=== PATIENT | female | born 1955 | race Caucasian/White ===

== ENCOUNTER → 2016-08-12 | Outpatient (CLI) | payer OTHER ==
[~2016-08-12] MED LIST: ACET-1138 PO; ASPEC81 PO; BUPRTAB51 PO; CALC0.2510 PO; FRS/40 PO; LANS30CA12 PO; LEVO75TA36 PO; OXYSR10 PO; POTA1TAB97 PO; RXC5 PO; SIMV40TA2 PO; TRAZ100T29 PO; ZNTT/150 PO
[2016-08-12 12:50] LABS: HEMATOCRIT 41.1 % (37-47); MEAN CELL VOLUME 89.2 fL (80-100); MEAN CORPUSCULAR HEMOGLOBIN 29.5 pg (25-34); MEAN CORPUSCULAR HGB CONC 33.1 g/dl (32-36); PLATELET COUNT 218 K/uL (130-400); RED BLOOD COUNT 4.61 M/uL (4.2-5.4); WHITE BLOOD COUNT 4.97 K/uL (4.8-10.8)
[2016-08-12 13:05] LABS: URINE PROTIEN/CREAT RATIO 0.1 (0-0.2); URINE TOTAL PROTEIN 17.9 mg/dl (0-11.9)
[2016-08-12 13:06] LABS: URINE APPEARANCE CLOUDY (CLEAR); URINE BILIRUBIN NEG (NEG); URINE COLOR YELLOW; URINE EPITHELIAL CELL AUTO >30 /lpf (0-5); URINE NITRITE NEG (NEG); URINE PH 5.5 (4.5-7.5); URINE SPECIFIC GRAVITY 1.014 (1.000-1.030); UROBILINOGEN NEG (NEG)
[2016-08-12 13:16] LABS: ALT/SGPT 12 U/L (12-78); BLOOD UREA NITROGEN 13 mg/dl (7-18); BUN/CREATININE RATIO 8.2 (10-20); CALCIUM 9.4 mg/dl (8.5-10.1); CARBON DIOXIDE 30 mmol/L (21-32); CHLORIDE 103 mmol/L (98-107); GLUCOSE 101 mg/dl (70-99); PHOSPHORUS 3.4 mg/dl (2.5-4.9); POTASSIUM 3.5 mmol/L (3.5-5.1); SODIUM 141 mmol/L (136-145); TRIGLYCERIDES 121 mg/dl (0-150); VERY LOW DENSITY LIPOPROT CALC 24 mg/dl
[2016-08-12 13:19] LABS: MANUAL MICROSCOPIC REQUIRED? NO; REVIEW REQ? YES
[2016-08-12 13:26] LABS: CHOLESTEROL 133 mg/dl (0-200); CHOLESTEROL/HDL RATIO 2.4; HDL CHOLESTEROL 55 mg/dl; LDL CHOLESTEROL CALCULATED 54 mg/dl; THYROID STIMULATING HORMONE 0.912 uIu/ml (0.300-4.500)
== END | disposition home or self-care (01) ==
LOC: C.LABPBG 08:20
PROVIDERS: ATTEND Internal Medicine Nephrology
DX: E78.5 Hyperlipidemia, unspecified (principal); E03.9 Hypothyroidism, unspecified; I12.9 Hypertensive chronic kidney disease with stage 1 through stage 4 chronic kidney disease, or unspecified chronic kidney disease; M25.561 Pain in right knee; N18.3 Chronic kidney disease, stage 3 (moderate); E55.9 Vitamin D deficiency, unspecified; N25.81 Secondary hyperparathyroidism of renal origin

== ENCOUNTER → 2016-10-19 | Outpatient (CLI) | payer OTHER ==
--- NOTE | 2016-10-19 14:27 | MAMMOGRAPHY REPORT ---
BILATERAL DIGITAL DIAGNOSTIC MAMMOGRAM TOMOSYNTHESIS WITH CAD: 10/19/2016 CLINICAL HISTORY: 61-year-old woman presents for bilateral screening mammography as well as follow-u p of probably benign grouped round microcalcifications in the left upper outer quadrant. TECHNIQUE: Bilateral CC and MLO 2-D digital and tomosynthesis images, spot magnification left CC and ML views were obtained. Current study was also evaluated with a Computer Aided Detection (CAD) sys tem. COMPARISON: Comparison is made to exams dated: 04/20/2016 mammogram, 10/16/2015 mammogram, and 016 mammogram - [facility]. BREAST COMPOSITION: The tissue of both breasts is heterogeneously dense, which may obscure small ma sses. FINDINGS: There are scattered benign-appearing calcifications in the breasts. There is a discrete g rouping of 4 round monomorphic microcalcifications in the upper outer middle one third of the left b reast, that are stable based on spot magnification views dating back to 10/16/2015, and based on sta ndard views dating back to 10/23/2014. These most likely represent benign fibrocystic changes as ot her round microcalcifications are scattered throughout each breast. However, longer stability is ne eded and repeat attention with spot magnification views in 12 months is recommended. Overall there is decreasing/fluctuating nodularity in the breasts, most likely represent fluctuating cysts. There is a stable intramammary lymph node in the upper outer posterior right breast. No new suspicious s piculated or irregular mass, architectural distortion or cluster of new, suspicious microcalcificati ons is seen. IMPRESSION: ACR-BI-RADS CATEGORY 3: PROBABLY BENIGN Stable round monomorphic microcalcifications in the left upper outer quadrant, and no mammographic e vidence of malignancy bilaterally. Another 12 month follow-up bilateral diagnostic mammogram includ ing left spot magnification views is recommended to ensure longer stability. These results and recommendations were discussed with the patient at the time of the exam. Approximately 10% of breast cancers are not detected with mammography. A negative mammographic repor t should not delay biopsy if a clinically suggestive mass is present. Elaine Rocha M.D. ay/:10/19/2016 11:54:50 Embedded Software Engineer: Anjana BRICENO(Funmi)(M), [facility] letter sent: Follow Up Recommended 3 BI-RADS Code: ACR-BI-RADS Category 3: Probably Benign
== END | disposition home or self-care (01) ==
LOC: C.MAMM 09:47
PROVIDERS: ATTEND Family Medicine
DX: R92.0 Mammographic microcalcification found on diagnostic imaging of breast (principal)

== ENCOUNTER → 2017-02-09 | Outpatient (CLI) | payer BC, OTHER ==
[2017-02-09 12:07] LABS: HEMATOCRIT 45.5 % (37-47); MEAN CORPUSCULAR HEMOGLOBIN 30.2 pg (25-34); MEAN CORPUSCULAR HGB CONC 33.2 g/dl (32-36); PLATELET COUNT 144 K/uL (130-400); WHITE BLOOD COUNT 4.24 K/uL (4.8-10.8)
[2017-02-09 12:27] LABS: ALT/SGPT 16 U/L (12-78); BLOOD UREA NITROGEN 10 mg/dl (7-18); BUN/CREATININE RATIO 6.4 (10-20); CALCIUM 9.3 mg/dl (8.5-10.1); CARBON DIOXIDE 33 mmol/L (21-32); CHLORIDE 106 mmol/L (98-107); CHOLESTEROL 148 mg/dl (0-200); GLUCOSE 96 mg/dl (70-99); POTASSIUM 4.2 mmol/L (3.5-5.1); SODIUM 141 mmol/L (136-145); TRIGLYCERIDES 123 mg/dl (0-150); VERY LOW DENSITY LIPOPROT CALC 25 mg/dl
[2017-02-09 12:28] LABS: URINE TOTAL PROTEIN < 5.0 mg/dl (0-11.9)
[2017-02-09 12:37] LABS: CHOLESTEROL/HDL RATIO 2.6; HDL CHOLESTEROL 57 mg/dl; LDL CHOLESTEROL CALCULATED 66 mg/dl; PHOSPHORUS 2.9 mg/dl (2.5-4.9)
[2017-02-09 13:01] LABS: URINE APPEARANCE CLEAR (CLEAR); URINE BILIRUBIN NEG (NEG); URINE COLOR YELLOW; URINE NITRITE POS (NEG); URINE SPECIFIC GRAVITY 1.013 (1.000-1.030); UROBILINOGEN NEG (NEG)
[2017-02-09 13:07] LABS: MANUAL MICROSCOPIC REQUIRED? NO; REVIEW REQ? NO
== END | disposition home or self-care (01) ==
LOC: C.LABPBG 08:48
PROVIDERS: ATTEND Internal Medicine Nephrology
DX: E78.5 Hyperlipidemia, unspecified (principal); E03.9 Hypothyroidism, unspecified; I12.9 Hypertensive chronic kidney disease with stage 1 through stage 4 chronic kidney disease, or unspecified chronic kidney disease; N18.3 Chronic kidney disease, stage 3 (moderate); N25.81 Secondary hyperparathyroidism of renal origin; E55.9 Vitamin D deficiency, unspecified

== ENCOUNTER → 2017-03-11 | Outpatient (CLI) | payer BC | END | disposition home or self-care (01) | LOC: C.MAMM 15:20 | PROVIDERS: ATTEND Family Medicine | DX: E28.39 Other primary ovarian failure (principal); M85.851 Other specified disorders of bone density and structure, right thigh; M85.852 Other specified disorders of bone density and structure, left thigh; M85.839 Other specified disorders of bone density and structure, unspecified forearm ==

== ENCOUNTER → 2017-08-23 | Outpatient (CLI) | payer BC ==
[2017-08-23 12:33] LABS: HEMATOCRIT 45.7 % (37-47); HEMOGLOBIN 15.3 g/dL (12.0-16.0); MEAN CELL VOLUME 91.6 fL (80-100); MEAN CORPUSCULAR HEMOGLOBIN 30.7 pg (25-34); MEAN CORPUSCULAR HGB CONC 33.5 g/dl (32-36); MEAN PLATELET VOLUME 11.7 fL (7.4-10.4); PLATELET COUNT 149 K/uL (130-400); RED CELL DISTRIBUTION WIDTH CV 12.8 % (11.5-14.5); RED CELL DISTRIBUTION WIDTH SD 42.8 fL (36.4-46.3); WHITE BLOOD COUNT 4.57 K/uL (4.8-10.8)
[2017-08-23 13:58] LABS: ALBUMIN 3.4 gm/dl (3.4-5.0); ALT/SGPT 14 U/L (12-78); BLOOD UREA NITROGEN 12 mg/dl (7-18); CARBON DIOXIDE 30 mmol/L (21-32); GLUCOSE 102 mg/dl (70-99); POTASSIUM 3.6 mmol/L (3.5-5.1); SODIUM 138 mmol/L (136-145)
[2017-08-23 14:09] LABS: CHOLESTEROL 159 mg/dl (0-200); LDL CHOLESTEROL CALCULATED 79 mg/dl; PHOSPHORUS 3.4 mg/dl (2.5-4.9)
== END | disposition home or self-care (01) ==
LOC: C.LABPBG 07:40
PROVIDERS: ATTEND Family Medicine
DX: E78.5 Hyperlipidemia, unspecified (principal); E03.9 Hypothyroidism, unspecified; I12.9 Hypertensive chronic kidney disease with stage 1 through stage 4 chronic kidney disease, or unspecified chronic kidney disease; N18.3 Chronic kidney disease, stage 3 (moderate); N25.81 Secondary hyperparathyroidism of renal origin; E55.9 Vitamin D deficiency, unspecified

== ENCOUNTER → 2017-10-20 | Outpatient (CLI) | payer BC ==
[~2017-10-20] MED LIST changes: +RANI150T85 PO; -ZNTT/150 PO
--- NOTE | 2017-10-21 07:50 | MAMMOGRAPHY REPORT ---
BILATERAL DIGITAL DIAGNOSTIC MAMMOGRAM TOMOSYNTHESIS WITH CAD AND TARGETED LEFT ULTRASOUND: 10/20/2017 CLINICAL HISTORY: 62-year-old woman presents at time of annual exam and also close follow-up of proba minerva benign punctate microcalcifications in the left breast. TECHNIQUE: Bilateral breast tomosynthesis in addition to standard 2D mammography was performed. Spot magnification left CC and ML views were also obtained. Current study was also evaluated with a Comp uter Aided Detection (CAD) system. COMPARISON: Comparison is made to exams dated: 10/19/2016 mammogram, 04/20/2016 mammogram, 10/16/2015 m ammogram, and 10/08/2015 mammogram - [facility]. BREAST COMPOSITION: The tissue of both breasts is heterogeneously dense, which may obscure small mas ses. FINDINGS: There are multiple bilateral circumscribed subcentimeter masses scattered in both breasts, and diffuse benign-appearing rounded coarse calcifications. A circumscribed mass in the upper outer middle one third of the left breast has increased in size compared to prior mammograms and although i t could represent a cyst definitive characterization with ultrasound was performed. The spot magnifi cation views of the left upper outer quadrant redemonstrate a small grouping of approximately 4 punct ate microcalcifications which is stable based on prior spot magnification views dating back to at [facility] 10/16/2015 and also stable compared to a spot compression view performed 10/31/2014. With greater th an 2 years of stability of these calcifications are considered benign and no further close follow-up is needed at this time. No suspicious spiculated or irregular masses, asymmetries or areas of kristi ectural distortion are identified. There are mild to moderate vascular calcifications in the breasts . Targeted ultrasound was performed in the upper outer quadrant of the left breast. In the 2:00 axis, 8 cm from the nipple, there is a lobulated anechoic benign cyst with posterior acoustic enhancement, measuring 1.7 x 8.5 x 1.6 cm. This correlates with the increasing circumscribed mammographic mass an d is benign. IMPRESSION: ACR BI-RADS CATEGORY 2: BENIGN, TARGETED ULTRASOUND ACR BI-RADS CATEGORY 2: BENIGN 1. Stable mammographic appearance of a small grouping of punctate microcalcifications in the left up per outer quadrant, unchanged dating back to at least 2014, therefore considered benign. No further close follow-up is needed at this time. 2. An enlarging circumscribed mass in the upper outer quadrant of the left breast correlates with a benign anechoic simple cyst on ultrasound, seen in the 2:00 axis, for which no further workup is need ed at this time. 3. Overall, the mammographic pattern is stable, with multiple bilateral circumscribed masses, which is a typically benign mammographic pattern. Recommend routine screening mammography in 1 year. These results and recommendations were discussed with the patient at the time of the exam. Approximately 10% of breast cancers are not detected with mammography. A negative mammographic report should not delay biopsy if a clinically suggestive mass is present. Elaine Rocha M.D. ay/:10/20/2017 12:02:34 Manager Cable: Elma BRICENO(Funmi)(Ye[place]), [facility] letter sent: Normal 1/2 BI-RADS Code: ACR BI-RADS Category 2: Benign Ultrasound BI-RADS: ACR BI-RADS Category 2: Benign
== END | disposition home or self-care (01) ==
LOC: C.MAMM 10:24
PROVIDERS: ATTEND Family Medicine
DX: R92.0 Mammographic microcalcification found on diagnostic imaging of breast (principal); N63.21 Unspecified lump in the left breast, upper outer quadrant

== ENCOUNTER → 2017-12-02 | Outpatient (CLI) | payer BC ==
[~2017-12-02] MED LIST changes: -ASPEC81 PO; +ASPI-320 PO; +OPTIRAY 320 IV PRN
--- NOTE | 2017-12-02 11:15 | DIAGNOSTIC IMAGING REPORT ---
ABD/PELVIS IV AND ORAL CONT CT DOSE: 668.69 mGy.cm HISTORY: Mass R19.01 Right upper quadrant abdominal swelling, mass and lumpPt TECHNIQUE: Multiaxial CT images of the abdomen and pelvis were performed following the use of intravenous and oral contrast. A dose lowering technique was utilized adhering to the principles of ALARA. COMPARISON STUDY: None. FINDINGS: Lung bases are clear. Liver is uniform throughout. There is a 1.5 cm hemangioma anterior aspect of the quadrate lobe. Spleen is uniform. Pancreas is unremarkable. There is small hiatal hernia. Kidneys are moderately atrophic on the left and to a significant degree atrophy on the right. Extrarenal pelves are noted bilaterally. There is a 4 mm nonobstructing calcification lower pole left kidney. The bowel pattern is nonobstructive. Bladder is midline. There is no free fluid within the pelvic cul-de-sac. There is a fat-containing periumbilical hernia. There is no evidence well-defined mass or collection. IMPRESSION: 1. Small periumbilical fat-containing hernia. 2. Otherwise negative abdomen and pelvis.. 3. No abnormal mass or collection. The above report was generated using voice recognition software. It may contain grammatical, syntax or spelling errors. Electronically signed by: Julian Peoples M.D. 12/02/2017 11:13 AM Dictated Date/Time: 12/02/2017 11:09 AM
== END | disposition home or self-care (01) ==
LOC: C.CTS 08:50
PROVIDERS: ATTEND Family Medicine
DX: R19.01 Right upper quadrant abdominal swelling, mass and lump (principal); K46.9 Unspecified abdominal hernia without obstruction or gangrene

== ENCOUNTER → 2018-02-14 | Outpatient (CLI) | payer BC ==
[~2018-02-14] MED LIST changes: -ACET-1138 PO; -ASPI-320 PO; -LEVO75TA36 PO; +LEVO75TA5 PO; -OPTIRAY 320 IV PRN; -OXYSR10 PO; -RXC5 PO
[2018-02-14 13:13] LABS: HEMATOCRIT 44.2 % (37-47); HEMOGLOBIN 14.8 g/dL (12.0-16.0); MEAN CELL VOLUME 90.8 fL (80-100); MEAN CORPUSCULAR HEMOGLOBIN 30.4 pg (25-34); MEAN CORPUSCULAR HGB CONC 33.5 g/dl (32-36); MEAN PLATELET VOLUME 11.5 fL (7.4-10.4); PLATELET COUNT 141 K/uL (130-400); RED CELL DISTRIBUTION WIDTH CV 12.6 % (11.5-14.5); RED CELL DISTRIBUTION WIDTH SD 41.4 fL (36.4-46.3); WHITE BLOOD COUNT 4.44 K/uL (4.8-10.8)
[2018-02-14 13:26] LABS: HEMOGLOBIN A1C 5.3 % (4.5-5.6)
[2018-02-14 13:37] LABS: ALBUMIN 3.6 gm/dl (3.4-5.0); ALT/SGPT 14 U/L (12-78); BLOOD UREA NITROGEN 11 mg/dl (7-18); CALCIUM 8.9 mg/dl (8.5-10.1); CARBON DIOXIDE 28 mmol/L (21-32); CHOLESTEROL 138 mg/dl (0-200); CREATININE 1.61 mg/dl (0.60-1.20); GLUCOSE 100 mg/dl (70-99); LDL CHOLESTEROL CALCULATED 59 mg/dl; PHOSPHORUS 3.4 mg/dl (2.5-4.9); POTASSIUM 3.5 mmol/L (3.5-5.1); SODIUM 141 mmol/L (136-145)
== END | disposition home or self-care (01) ==
LOC: C.LABPBG 07:17
PROVIDERS: ATTEND Internal Medicine Nephrology
DX: E78.5 Hyperlipidemia, unspecified (principal); R73.9 Hyperglycemia, unspecified; M25.473 Effusion, unspecified ankle; N18.3 Chronic kidney disease, stage 3 (moderate); I12.9 Hypertensive chronic kidney disease with stage 1 through stage 4 chronic kidney disease, or unspecified chronic kidney disease; E55.9 Vitamin D deficiency, unspecified